=== PATIENT | female | born 1945 | race Caucasian/White ===

== ENCOUNTER 2018-03-09 15:04 | Observation (INO) ==
[2018-03-09] MEDS ORDERED: Sod Chloride 0.9% Inj 1,000 ML IV.SIG ONE (18:48)
--- NOTE | 2018-03-09 19:01 | ED ---
HPI General Chief complaint: Nausea/Vomiting/Diarrhea Stated complaint: Sent by dr Mai Seen by Provider: 03/09/18 18:33 Source: patient Mode of arrival: ambulatory Limitations: no limitations History of Present Illness HPI Narrative: 72-year-old female presents to the emergency department the request of her primary care physician for evaluation of a small bowel obstruction that was found on CT today. Patient states Friday she began feeling nauseous and had mid abdominal pain. A CT was ordered today for evaluation and her primary care physician received the results which stated small bowel obstruction. Says she has had a decreased intake throughout the weekend but was able to eat today without vomiting. She states she has had 4-5 episodes of watery, yellow diarrhea that has decreased in quantity throughout the day. She denies unusual odor. She denies recent antibiotic use, hospitalizations, sick contacts. Patient says currently, her pain is 5/10 and focused in the lower mid abdominal region. She describes it as "pain". Patient states she has a history of hyperlipidemia and hypothyroidism. Says she has not taken her medications today. Related Data Home Medications Medication Instructions Recorded Confirmed acetaminophen [Tylenol Arthritis 650 mg PO Q8H PRN 03/09/18 03/09/18 Pain] levothyroxine 25 mcg PO DAILY 03/09/18 03/09/18 simvastatin 20 mg PO QPM 03/09/18 03/09/18 Allergies Allergy/AdvReac Type Severity Reaction Status Date / Time No Known Allergies Allergy Uncoded 01/02/14 05:07 Review of Systems ROS: all other systems reviewed are negative PMFSH History History Provided By: Patient Medical History Medical History Colon polyps (Acute) GERD (gastroesophageal reflux disease) (Acute) H/O: hysterectomy (Acute) History of diverticulitis of colon (Acute) Hx of non anemic vitamin B12 deficiency (Acute) Hyperlipidemia (Acute) Hypothyroidism (Acute) Osteoarthritis (Acute) Vitamin D deficiency (Acute) Social History Social History Substance History: No History of Abuse Second Hand Smoke Exposure: No Smoking Status: Never smoker How Often Do You Have a Drink Containing Alcohol: 2 to 3 times a week Recent Travel in [facility] within the Last 8 Weeks: No Recent Out of Country Travel within the Last 8 Weeks: No Exam Narrative Exam Narrative: GENERAL: Well-developed well-nourished no apparent distress SKIN: Focused skin assessment warm/dry. HEAD: Atraumatic. Normocephalic. EYES: Pupils equal and round. No scleral icterus. No injection or drainage. ENT: No nasal bleeding or discharge. Mucous membranes pink and moist. NECK: Trachea midline. No JVD. No lymphadenopathy CARDIOVASCULAR: Regular rate and rhythm. No murmur appreciated. RESPIRATORY: No accessory muscle use. Clear to auscultation. Breath sounds equal bilaterally. GASTROINTESTINAL: Abdomen soft, lower mid abdominal region rigid with TTP. Negative psoas sign. No rebound Tenderness MUSCULOSKELETAL: No obvious deformities. No clubbing. No cyanosis. No edema. NEUROLOGICAL: Awake and alert. No obvious cranial nerve deficits. Motor grossly within normal limits. Normal speech. PSYCHIATRIC: Appropriate mood and affect; insight and judgment normal. Course Initial Documented Vital Signs Temperature 98.8 F 03/09/18 15:12 Pulse Rate 104 H 03/09/18 15:12 Respiratory Rate 18 03/09/18 15:12 Blood Pressure 146/66 H 03/09/18 15:12 Pulse Oximetry 96 03/09/18 15:12 Last Documented Vital Signs Temperature 97.6 F 03/10/18 04:00 Pulse Rate 66 03/10/18 04:00 Respiratory Rate 16 03/10/18 04:00 Blood Pressure 109/59 L 03/10/18 04:00 Pulse Oximetry 96 03/10/18 04:00 Medical Decision Making MUSTAPHA Attestation MUSTAPHA supervised visit: Yes Attestation: I, Dr. Dawson, have reviewed the advance practice practitioner's documentation and am in agreement, met with the patient face to face, made the diagnosis, and the medical decision making was done by me. The patient was initially evaluated by ebenezer Weiss PA. Please see their complete history and physical. *My assessment and Findings: The patient presents with a history of abdominal pain and reportedly being diagnosed with a small bowel obstruction as an outpatient earlier today. Patient reports that she began to have abdominal pain on Friday. She reports that she did have a normal bowel movement on Friday. She reports that she then went to a local urgent care center for further evaluation of the abdominal pain and a CT scan of the abdomen pelvis was ordered. She denies having any nausea or vomiting associated with this. She reports that she had a loose stool earlier today. She denies ever having a small bowel obstruction in the past. The patient reports that her primary care physician, Dr. Ley called her regarding the CT scan results being abnormal and told her to go to the emergency department. The patient reports that the only abdominal surgeries that she has had is a complete hysterectomy, and a 9 pound cyst removal. During the course of the patient's emergency department visit, the patient's history, examination, and differential diagnosis were reviewed with the patient. The patient was placed on a youth nutritional monitor with oximetry and frequent blood pressure monitoring. The patient had IV access obtained and blood work sent for analysis. The patient was initially provided normal saline 1 L IV fluid bolus. The patient's diagnostic studies were reviewed and remarkable for a CT scan of the abdomen and pelvis results that was reviewed regarding the outpatient reading that did show evidence of a possible partial small bowel obstruction. The patient's white count is 7.6, hemoglobin 13.9, platelets 263, Potassium 3.4 , GFR 73with eosinophils 4.3, PT 10.8, PTT 25, chemistry is remarkable for potassium 3.4, GFR 73. The patient will be admitted to the hospital for continued observation regarding a possible partial small bowel obstruction versus enteritis. The patient's results were discussed with the patient, including the plan of care. I explained that further testing and/ or monitoring is indicated based on the patient's history, examination, and/ or laboratory findings. Therefore, I recommended admission for additional evaluation. The patient expressed understanding and was agreeable with this plan. The patient was admitted to the hospital in stable condition and sent to a bed under the care of the [facility] hospitalist service. [facility] Narrative Medical decision making narrative: 72-year-old female presents to the emergency department for evaluation of a possible small bowel obstruction that was found on CT today. She was advised to come to the emergency department by her primary care physician who received the report. She states Friday she started having nausea associated with abdominal pain. Says she went to urgent care who ordered a CT this was performed today. Currently, she states her pain is 5/10 and focused in the lower mid abdominal region. Vital signs are stable. Physical exam findings consistent with a 72-year-old female, well-developed well -nourished in no acute distress, resting comfortably in bed. Mild TTP with rigidity to lower midabdominal region. A midline scar from a previous, remote hysterectomy noted. I reviewed the CT abdomen pelvis with and without contrast from [place] [facility] dated today. States "evidence of multiple loops of mildly dilated small bowel as well as some thickening of the wall of the several loops of the small bowel. There is a ventral abdominal hernia to the right of midline with 1 of the loops mildly dilated thickened small bowel extending through the hernia defect. Partial small bowel obstruction is questioned. There is also mild diffuse thickening of the wall of the proximal transverse colon and ascending colon to include the cecum. These findings are suggestive of colitis and enteritis." Her labs are stable. I spoke with Dr. Gomez who agreed to the admission. Medical Screen Exam Complete: Yes Emergency Medical Condition: Yes Differential Diagnosis Differential Diagnosis: Small bowel obstruction, diarrhea, C. difficile Lab Data Result diagrams: 03/09/18 19:16 03/09/18 19:16 Lab Results 03/09/18 03/09/18 03/09/18 Range/Units 19:16 19:16 19:27 WBC 7.6 (4.0-11.0) th/mm3 RBC 4.50 (4.00-5.30) mil/mm3 Hgb 13.9 (11.6-15.3) gm/dL Hct 40.8 (35.0-46.0) % MCV 90.7 (80.0-100.0) fL MCH 30.8 (27.0-34.0) pg MCHC 34.0 (32.0-36.0) % RDW 14.4 (11.6-17.2) % Plt Count 263 (150-450) th/mm3 MPV 7.8 (7.0-11.0) fL Neut % (Auto) 60.9 (16.0-70.0) % Lymph % (Auto) 28.4 (9.0-44.0) % [place] % (Auto) 6.0 (0.0-8.0) % Eos % (Auto) 4.3 H (0.0-4.0) % Baso % (Auto) 0.4 (0.0-2.0) % Neut # (Auto) 4.6 (1.8-7.7) th/mm3 Lymph # (Auto) 2.2 (1.0-4.8) th/mm3 [place] # (Auto) 0.5 (0.0-0.9) th/mm3 Eos # (Auto) 0.3 (0.0-0.4) th/mm3 Baso # (Auto) 0.0 (0.0-0.2) th/mm3 WBC Differential . Differential Comment Auto diff final PT 10.8 (9.8-11.6) sec INR 1.1 Ratio APTT 25.0 (24.3-30.1) sec Sodium 139 (136-145) meq/L Potassium 3.4 L (3.5-5.1) meq/L Chloride 104 (98-107) meq/L Carbon Dioxide 24.4 (21.0-32.0) meq/L Anion Gap 11 (5-15) meq/L BUN 16 (7-18) mg/dL Creatinine 0.77 (0.50-1.00) mg/dL Estimated GFR 73 L (>89) mL/min Random Glucose 95 (74-106) mg/dL Calcium 8.7 (8.5-10.1) mg/dL Magnesium 2.2 (1.5-2.5) mg/dL Total Bilirubin 0.5 (0.2-1.0) mg/dL AST 15 (15-37) U/L ALT 20 (10-53) U/L Alkaline Phosphatase 77 (45-117) U/L Total Protein 7.5 (6.4-8.2) g/dL Albumin 3.8 (3.4-5.0) g/dL Urine Color (Yellw/Straw) Urine Clarity (Clear) Urine pH (5.0-8.5) Ur Specific [place] (1.002-1.035) Urine Protein (Neg-Trace) mg/dL Urine Glucose (UA) (Negative) mg/dL Urine Ketones (Negative) mg/dL Urine Occult Blood (Negative) Urine Nitrate (Negative) Urine Bilirubin (Negative) Urine Urobilinogen (Less than 2) mg/dL Ur Leukocyte Esterase (Negative) Urine RBC (0-3) /hpf Urine WBC (0-5) /hpf Ur Squamous Epith Cells (0-5) /hpf Urine Mucus (Occasional) /lpf Micro UA Comment Ur Microscopic Review Urine Culture Comments 03/09/18 Range/Units 23:29 WBC (4.0-11.0) th/mm3 RBC (4.00-5.30) mil/mm3 Hgb (11.6-15.3) gm/dL Hct (35.0-46.0) % MCV (80.0-100.0) fL MCH (27.0-34.0) pg MCHC (32.0-36.0) % RDW (11.6-17.2) % Plt Count (150-450) th/mm3 MPV (7.0-11.0) fL Neut % (Auto) (16.0-70.0) % Lymph % (Auto) (9.0-44.0) % [place] % (Auto) (0.0-8.0) % Eos % (Auto) (0.0-4.0) % Baso % (Auto) (0.0-2.0) % Neut # (Auto) (1.8-7.7) th/mm3 Lymph # (Auto) (1.0-4.8) th/mm3 [place] # (Auto) (0.0-0.9) th/mm3 Eos # (Auto) (0.0-0.4) th/mm3 Baso # (Auto) (0.0-0.2) th/mm3 WBC Differential Differential Comment PT (9.8-11.6) sec INR Ratio APTT (24.3-30.1) sec Sodium (136-145) meq/L Potassium (3.5-5.1) meq/L Chloride (98-107) meq/L Carbon Dioxide (21.0-32.0) meq/L Anion Gap (5-15) meq/L BUN (7-18) mg/dL Creatinine (0.50-1.00) mg/dL Estimated GFR (>89) mL/min Random Glucose (74-106) mg/dL Calcium (8.5-10.1) mg/dL Magnesium (1.5-2.5) mg/dL Total Bilirubin (0.2-1.0) mg/dL AST (15-37) U/L ALT (10-53) U/L Alkaline Phosphatase (45-117) U/L Total Protein (6.4-8.2) g/dL Albumin (3.4-5.0) g/dL Urine Color Yellow (Yellw/Straw) Urine Clarity Hazy H (Clear) Urine pH 5.0 (5.0-8.5) Ur Specific [place] 1.017 (1.002-1.035) Urine Protein Negative (Neg-Trace) mg/dL Urine Glucose (UA) Negative (Negative) mg/dL Urine Ketones Trace H (Negative) mg/dL Urine Occult Blood Moderate H (Negative) Urine Nitrate Negative (Negative) Urine Bilirubin Negative (Negative) Urine Urobilinogen Less than 2 (Less than 2) mg/dL Ur Leukocyte Esterase Moderate H (Negative) Urine RBC 1 (0-3) /hpf Urine WBC 11 H (0-5) /hpf Ur Squamous Epith Cells <1 (0-5) /hpf Urine Mucus Few H (Occasional) /lpf Micro UA Comment Culture indicated Ur Microscopic Review Not Reportable Urine Culture Comments Culture indicated Discharge Plan Discharge Disposition Patient Disposition: 30 Still Patient Discharge Condition Condition: Stable Discharge Details Diagnosis: Partial obstruction of small intestine Physicians Team ED Provider: Zaira Dawson ED Midlevel Provider: Sharyn Rios Primary Care Provider: Scott Ley Attending Provider: Kevin Swann Status ED Status: Left Department Discharge Information Discharge Date/Time: 03/10/18 01:15
[2018-03-09 19:44] LABS: Baso % (Auto) 0.4 % (0.0-2.0); Eos # (Auto) 0.3 th/mm3 (0.0-0.4); Eos % (Auto) 4.3 % (0.0-4.0); Hematocrit 40.8 % (35.0-46.0); Hemoglobin 13.9 gm/dL (11.6-15.3); Lymph # (Auto) 2.2 th/mm3 (1.0-4.8); Lymph % (Auto) 28.4 % (9.0-44.0); Mean Corpuscular Hemoglobin 30.8 pg (27.0-34.0); Mean Corpuscular Volume 90.7 fL (80.0-100.0); Mean Platelet Volume 7.8 fL (7.0-11.0); Mono # (Auto) 0.5 th/mm3 (0.0-0.9); Neut # (Auto) 4.6 th/mm3 (1.8-7.7); Neut % (Auto) 60.9 % (16.0-70.0); Platelet Count 263 th/mm3 (150-450); Red Cell Distribution Width 14.4 % (11.6-17.2); White Blood Count 7.6 th/mm3 (4.0-11.0)
[2018-03-09 19:59] LABS: INR 1.1 Ratio; Prothrombin Time 10.8 sec (9.8-11.6)
[2018-03-09 20:04] LABS: Albumin 3.8 g/dL (3.4-5.0); Anion Gap 11 meq/L (5-15); Aspartate Aminotransferase 15 U/L (15-37); Blood Urea Nitrogen 16 mg/dL (7-18); Calcium 8.7 mg/dL (8.5-10.1); Carbon Dioxide 24.4 meq/L (21.0-32.0); Chloride 104 meq/L (98-107); Glomerular Filtration Rate 73 mL/min (>89); Glucose,Random 95 mg/dL (74-106); Magnesium 2.2 mg/dL (1.5-2.5); Potassium 3.4 meq/L (3.5-5.1); Sodium 139 meq/L (136-145)
[2018-03-09 20:05] LABS: Alanine Aminotransferase 20 U/L (10-53)
[2018-03-09 20:07] LABS: Alkaline Phosphatase 77 U/L (45-117); Total Protein 7.5 g/dL (6.4-8.2)
[2018-03-10 00:05] LABS: Bilirubin,Urine Negative (Negative); Clarity,Urine Hazy (Clear); Color,Urine Yellow (Yellw/Straw); Glucose,Urine (UA) Negative (Negative); Leukocyte Esterase,Urine Moderate (Negative); Mucus,Urine Few /lpf (Occasional); Nitrite,Urine Negative (Negative); Specific Gravity,Urine 1.017 (1.002-1.035); Squamous Epithelial Cell,Urine <1 /hpf (0-5)
[2018-03-10] MEDS ORDERED: Acetaminophen 325 MG Tablet PO PRN ×2 (00:33→00:39)
[2018-03-10] MEDS ORDERED: Bisacodyl 10 MG Supp RECTAL PRN (00:39)
[2018-03-10] MEDS ORDERED: oxyCODONE/Acetaminophen 10/325 Tablet PO PRN (00:42)
[2018-03-10] MEDS ORDERED: Naloxone Inj 0.4 MG/ML Vial IV.PUSH PRN (00:42)
[2018-03-10] MEDS: Sod Chloride 0.9% Inj 1,000 ML IV.CONT SCH ×2 (00:59→12:36)
--- NOTE | 2018-03-10 00:59 | P.HPFP ---
History of Present Illness Primary Care Physician: Scott Ley History of Present Illness: This is a pleasant 72-year-old female who presents for evaluation of abnormal CT abdomen and pelvis. 3 days ago the patient developed diffuse abdominal pain which was intermittent, without nausea or vomiting. She continued to have bowel movements throughout which were somewhat loose. She presented to the urgent care where she was prescribed Flagyl and Cipro p.o. and an abdominal CT scan was ordered which showed a questionable partial small bowel obstruction, mild diffuse thickening of the wall of the proximal transverse colon in the ascending colon involving the cecum suggestive of colitis and enteritis. The patient states she is feeling much better than 3 days ago. She denied any fevers. She did have cold sweats. The patient states her main symptom today is hunger. She does have a very remote history of diverticulitis but states it has not bothered her for years. PMF - History History Provided By: Patient, Medical Record - Medical History Medical History: Medical History (Last Updated 03/10/18 @ 00:57 by Codi Gomez MD) Colon polyps GERD (gastroesophageal reflux disease) H/O: hysterectomy History of diverticulitis of colon Hx of non anemic vitamin B12 deficiency Hyperlipidemia Hypothyroidism Osteoarthritis Vitamin D deficiency - Tobacco History Second Hand Smoke Exposure: No Smoking Status: Never smoker - Alcohol History How Often Do You Have a Drink Containing Alcohol: 2 to 4 times a month - Substance Use History Substance History: No History of Abuse - Travel History Recent Travel in the [place] Within the Last 8 Weeks: No Recent Travel Out of the Country Within the Last 8 Weeks: No - Immunization History Tetanus Immunization: Unsure Medications and Allergies Active Medications: Active Medications Acetaminophen (Tylenol) 650 mg PO Q8H PRN PRN Reason: PAIN 1-10 Acetaminophen (Tylenol) 650 mg PO Q4H PRN PRN Reason: Temp > 100.4 Al Hydroxide/Mg Hydroxide (Milk Of Magnesia Liq) 30 ml PO Q12H PRN PRN Reason: Mild Constipation Aspirin (Ecotrin) 81 mg PO DAILY OLU Bisacodyl (Dulcolax Supp) 10 mg RECTAL DAILY PRN PRN Reason: SEVERE CONSITIPATION Ciprofloxacin/Dextrose (Cipro 200 Mg/100 Ml Inj) 200 mg in 100 mls @ 100 mls/ hr IV.SIG Q24H OLU Metronidazole/Sodium Chloride (Flagyl 500 Mg Inj) 100 mls @ 100 mls/hr IV.SIG Q8H OLU Sodium Chloride (Ns Inj) 1,000 mls @ 100 mls/hr IV.CONT .Q10H OLU Lactulose (Lactulose Liq) 30 ml PO DAILY PRN PRN Reason: SEVERE CONSITIPATION Levothyroxine Sodium (Synthroid) 25 mcg PO DAILY@0700 [facility] Naloxone HCl (Narcan Inj) 0.4 mg IV.PUSH UNSCH PRN PRN Reason: SEE LABEL COMMENTS Ondansetron HCl (Zofran Inj) 4 mg IV.PUSH Q6H PRN PRN Reason: NAUSEA OR VOMITING Oxycodone/Acetaminophen (Percocet 10/325 Mg) 1 tab PO Q6H PRN PRN Reason: PAIN SCALE 6 TO 10 Oxycodone/Acetaminophen (Percocet 5/325 Mg) 1 tab PO Q6H PRN PRN Reason: PAIN SCALE 3 TO 5 Pravastatin Sodium (Pravachol) 40 mg PO QPM [facility] Senna/Docusate Sodium (Kelly-Colace) 1 tab PO BID [facility] Sennosides (Senokot) 17.2 mg PO Q12H PRN PRN Reason: Moderate Constipation Sodium Chloride (Ns Flush) 2 ml IV.FLUSH PRN PRN PRN Reason: FLUSH AFTER USING IV ACCESS Allergies Allergy/AdvReac Type Severity Reaction Status Date / Time No Known Allergies Allergy Uncoded 01/02/14 05:07 Home Medications Medication Instructions Recorded Confirmed Type acetaminophen [Tylenol Arthritis 650 mg PO Q8H PRN 03/09/18 03/09/18 History Pain] levothyroxine 25 mcg PO DAILY 03/09/18 03/09/18 History simvastatin 20 mg PO QPM 03/09/18 03/09/18 History Exam Vital signs: Vital Signs 03/09/18 15:12 03/09/18 19:03 03/09/18 23:00 Temperature 98.8 F Pulse Rate 104 H 72 79 Respiratory Rate 18 18 18 Blood Pressure 146/66 H 130/69 140/67 Pulse Oximetry 96 97 97 Intake & Output 03/09/18 03/09/18 03/10/18 06:59 18:59 06:59 Intake Total 1240 / 1240 Balance 1240 / 1240 Weight 63.957 kg Intake: IV 1000 / 1000 NS Inj 1,000 ML @ Wide Open IV. 1000 / 1000 SIG BOLUS ONE Rx#:[id number] Oral 240 / 240 Other: # Voids 1 Date of Last Bowel Movement 03/09/18 Results - Labs Result diagrams: 03/09/18 19:16 03/09/18 19:16 Abnormal lab results 03/09/18 03/09/18 03/09/18 Range/Units 19:16 19:16 23:29 Eos % (Auto) 4.3 H (0.0-4.0) % Potassium 3.4 L (3.5-5.1) meq/L Estimated GFR 73 L (>89) mL/min Urine Clarity Hazy H (Clear) Urine Ketones Trace H (Negative) mg/dL Urine Occult Blood Moderate H (Negative) Ur Leukocyte Esterase Moderate H (Negative) Urine WBC 11 H (0-5) /hpf Urine Mucus Few H (Occasional) /lpf Short CBC 03/09/18 Range/Units 19:16 WBC 7.6 (4.0-11.0) th/mm3 Hgb 13.9 (11.6-15.3) gm/dL Hct 40.8 (35.0-46.0) % Plt Count 263 (150-450) th/mm3 BMP 03/09/18 19:16 Sodium 139 Potassium 3.4 L Chloride 104 Carbon Dioxide 24.4 BUN 16 Creatinine 0.77 Calcium 8.7 Liver Function 03/09/18 Range/Units 19:16 Total Bilirubin 0.5 (0.2-1.0) mg/dL AST 15 (15-37) U/L ALT 20 (10-53) U/L Alkaline Phosphatase 77 (45-117) U/L Albumin 3.8 (3.4-5.0) g/dL Urine 03/09/18 Range/Units 23:29 Urine Color Yellow (Yellw/Straw) Urine Clarity Hazy H (Clear) Urine pH 5.0 (5.0-8.5) Ur Specific [place] 1.017 (1.002-1.035) Urine Protein Negative (Neg-Trace) mg/dL Urine Glucose (UA) Negative (Negative) mg/dL Caprini VTE Risk Assessment Caprini VTE Risk Assessment: No/Low Risk (score <= 1) Caprini Risk Assessment Model: Point Value = 1 Point Value = 2 Point Value = 3 Point Value = 5 Age 41-60 Minor surgery BMI > 25 kg/m2 Swollen legs Varicose veins or History of unexplained or recurrent spontaneous Oral contraceptives or hormone replacement Sepsis (< 1 month) Serious lung disease, including pneumonia (< 1 month) Abnormal pulmonary function Acute myocardial infarction Congestive heart failure (< 1 month) History of inflammatory bowel disease Medical patient at bed rest Age 61-74 Arthroscopic surgery Major open surgery (> 45 min) Laparoscopic surgery (> 45 min) Malignancy Confined to bed (> 72 hours) Immobilizing plaster cast Central venous access Age >= 75 History of VTE Family history of VTE Factor V Leiden Prothrombin [id number] Lupus anticoagulant Anticardiolipin antibodies Elevated serum homocysteine Heparin-induced thrombocytopenia Other congenital or acquired thrombophilia Stroke (< 1 month) Elective arthroplasty Hip, pelvis, or leg fracture Acute spinal cord injury (< 1 month) Prophylaxis Regimen: Total Risk Factor Score Risk Level Prophylaxis Regimen 0-1 Low Early ambulation 2 Moderate Order ONE of the following: *Sequential Compression Device (SCD) *Heparin 5000 units SQ BID 3-4 Higher Order ONE of the following medications: *Heparin 5000 units SQ TID *Enoxaparin/Lovenox 40 mg SQ daily (WT < 150 kg, CrCl > 30 mL/min) *Enoxaparin/Lovenox 30 mg SQ daily (WT < 150 kg, CrCl > 10-29 mL/min) *Enoxaparin/Lovenox 30 mg SQ BID (WT < 150 kg, CrCl > 30 mL/min) AND/OR *Sequential Compression Device (SCD) 5 or more Highest Order ONE of the following medications: *Heparin 5000 units SQ TID (Preferred with Epidurals) *Enoxaparin/Lovenox 40 mg SQ daily (WT < 150 kg, CrCl > 30 mL/min) *Enoxaparin/Lovenox 30 mg SQ daily (WT < 150 kg, CrCl > 10-29 mL/min) *Enoxaparin/Lovenox 30 mg SQ BID (WT < 150 kg, CrCl > 30 mL/min) AND *Sequential Compression Device (SCD) Assessment and Plan - Assessment and Plan Abdominal pain, most likely due to colitis and enterocolitis. There is a very questionable partial small bowel obstruction however she has continued to have bowel movements including today. She complains of hunger. I will place her on a full liquid diet and see how she tolerates that. If she vomits then we may need to get GI versus general surgery involved. We will continue on Flagyl and Cipro IV. We will continue her on the rest of her medications as appropriate. DVT prophylaxis with SCDs.
[2018-03-10] MEDS ORDERED: Ciprofloxacin 200 MG/100 ML 200 MG/100 ML PIGGYBACK IV.SIG SCH (01:00)
--- NOTE | 2018-03-10 08:55 | P.PNIM ---
Subjective Interval history: Pt had a small amount of loose stool this morning Her abd discomfort is stable to improved. She has not had any oral intake other than water since admission. She is planned for liquid diet this morning. Afebrile Physical Exam Vital signs: Vital Signs 03/09/18 15:12 03/09/18 19:03 03/09/18 23:00 Temperature 98.8 F Pulse Rate 104 H 72 79 Respiratory Rate 18 18 18 Blood Pressure 146/66 H 130/69 140/67 Pulse Oximetry 96 97 97 03/10/18 01:12 03/10/18 04:00 03/10/18 08:00 Temperature 97.6 F 98.9 F Pulse Rate 66 69 Respiratory Rate 18 16 18 Blood Pressure 109/59 L 125/67 Pulse Oximetry 98 96 97 Intake & Output 03/09/18 03/10/18 03/10/18 18:59 06:59 18:59 Intake Total 1580 / 1580 Balance 1580 / 1580 Weight 63.957 kg 63.957 kg Intake: IV 1200 / 1200 Cipro 200 MG/100 ML Inj 200 mg 100 / 100 In 100 ml @ 100 mls/hr IV.SIG Q24H OLU Rx#:[id number] NS Inj 1,000 ML @ Wide Open IV. 1000 / 1000 SIG BOLUS ONE Rx#:[id number] Flagyl 500 MG Inj 100 ML @ 100 100 / 100 mls/hr IV.SIG Q8H OLU Rx#: [id number] Oral 380 / 380 Other: # Voids 1 Date of Last Bowel Movement 03/09/18 Weight On Admission 63.957 kg Narrative: General: NAD, AAOx3 Chest: CTA Cardiac: Regular Abd: +BS, soft mildly distended, mid abdominal tenderness to palpation, no guarding or rebound Ext: No edema Results - Labs CBC & Chem 7: 03/09/18 19:16 03/09/18 19:16 Laboratory Results - last 24 hr 03/09/18 03/09/18 03/09/18 19:16 19:16 19:27 WBC 7.6 RBC 4.50 Hgb 13.9 Hct 40.8 MCV 90.7 MCH 30.8 MCHC 34.0 RDW 14.4 Plt Count 263 MPV 7.8 Neut % (Auto) 60.9 Lymph % (Auto) 28.4 [place] % (Auto) 6.0 Eos % (Auto) 4.3 H Baso % (Auto) 0.4 Neut # (Auto) 4.6 Lymph # (Auto) 2.2 [place] # (Auto) 0.5 Eos # (Auto) 0.3 Baso # (Auto) 0.0 WBC Differential . Differential Comment Auto diff final PT 10.8 INR 1.1 APTT 25.0 Sodium 139 Potassium 3.4 L Chloride 104 Carbon Dioxide 24.4 Anion Gap 11 BUN 16 Creatinine 0.77 Estimated GFR 73 L Random Glucose 95 Calcium 8.7 Magnesium 2.2 Total Bilirubin 0.5 AST 15 ALT 20 Alkaline Phosphatase 77 Total Protein 7.5 Albumin 3.8 Urine Color Urine Clarity Urine pH Ur Specific [place] Urine Protein Urine Glucose (UA) Urine Ketones Urine Occult Blood Urine Nitrate Urine Bilirubin Urine Urobilinogen Ur Leukocyte Esterase Urine RBC Urine WBC Ur Squamous Epith Cells Urine Mucus Micro UA Comment Ur Microscopic Review Urine Culture Comments 03/09/18 23:29 WBC RBC Hgb Hct MCV MCH MCHC RDW Plt Count MPV Neut % (Auto) Lymph % (Auto) [place] % (Auto) Eos % (Auto) Baso % (Auto) Neut # (Auto) Lymph # (Auto) [place] # (Auto) Eos # (Auto) Baso # (Auto) WBC Differential Differential Comment PT INR APTT Sodium Potassium Chloride Carbon Dioxide Anion Gap BUN Creatinine Estimated GFR Random Glucose Calcium Magnesium Total Bilirubin AST ALT Alkaline Phosphatase Total Protein Albumin Urine Color Yellow Urine Clarity Hazy H Urine pH 5.0 Ur Specific [place] 1.017 Urine Protein Negative Urine Glucose (UA) Negative Urine Ketones Trace H Urine Occult Blood Moderate H Urine Nitrate Negative Urine Bilirubin Negative Urine Urobilinogen Less than 2 Ur Leukocyte Esterase Moderate H Urine RBC 1 Urine WBC 11 H Ur Squamous Epith Cells <1 Urine Mucus Few H Micro UA Comment Culture indicated Ur Microscopic Review Not Reportable Urine Culture Comments Culture indicated - Imaging CT Abd/pelvis W&W/O IV contrast (03/09/18) 1. Evidence of multiple loops of mildly dilated small bowel as well as some thickening of the wall of several loops of small bowel. There is a ventral abdominal wall hernia to the right of midline with one of the loops of mildly thickened small bowel extending through the hernia defect. Partial small bowel obstruction is questioned. There is also mild diffuse thickening of the wall of the proximal transverse colon and the ascending colon including the cecum. The findings are suggestive of colitis and enteritis. 2. Scattered diverticula are noted throughout the colon 3. Degenerative changes and scoliosis of the thoracolumbar spine 4. Degenerative changes involving the hip joints bilaterally. Assessment and Plan - Assessment (1) Partial obstruction of small intestine Code(s): K56.600 - Partial intestinal obstruction, unspecified as to cause Status: Acute Plan: Partial SBO on CT scan Colitis/Enteritis Hx of tubular adenoma with high grade dysplasia in 2016 - Pt is a 72 y/o female with hypothyroidism, hyperlipidemia, and hx of precancerous colon polyps (Pts last colonoscopy was on 09/02/[address] Mcmillan which revealed a pedunculated polyp in the mid transverse colon). She presented to the ED at [facility] on 03/09/18 for further evaluation of abnormal findings on CT abdomen and pelvis indicating possible partial SBO. Pt had reported that 3 days prior to admission she developed diffuse abdominal pain and some loose stools. She was seen at [facility] urgent care and prescribed Flagyl and Cipro p.o. and was sent for CT abd/pelvis. This was performed on 03/09/18 and revealed evidence of multiple loops of mildly dilated small bowel as well as some thickening of the wall of several loops of small bowel, a ventral abdominal wall hernia to the right of midline with one of the loops of mildly thickened small bowel extending through the hernia defect. Partial small bowel obstruction is questioned. There is also mild diffuse thickening of the wall of the proximal transverse colon and the ascending colon including the cecum. The findings are suggestive of colitis and enteritis. - She denies any recent travel or ill contacts. - Overall the pt is feeling better - She was started on Cipro and Flagyl IV at admission - Pt is on IVF - Check stool studies if she has any further loose stools. - She will have a trial of full liquids today. If she tolerates liquids for breakfast we can advance to soft foods for lunch and if she does well with this plan to discharge home this afternoon to complete her Abx regimen at home. - She will need to followup with her PCP, Dr. Scott Ley, within 3-5 days. (2) Colitis Code(s): K52.9 - Noninfective gastroenteritis and colitis, unspecified Status : Acute - Attending Attestation The exam, history, and the medical decision-making described in the above note were completed with the assistance of the mid-level provider. I reviewed and agree with the findings presented. I attest that I had a [id number] encounter with the patient on the same day, and personally performed and documented my assessment and findings in the medical record. Patient examined. Assessment and plan formulated with Talita Johnson PA-C. I agree with the above.
[2018-03-10] MEDS ORDERED: Senna/Docusate Sodium 8.6/50 MG Tablet PO SCH (09:00)
== END 2018-03-10 14:54 | disposition home or self-care (01) ==
LOC: NEDA 15:04 → NEPC 15:04 → NEDA 03-10 01:15 → NEPGCP 03-10 01:16
PROVIDERS: ADMIT Hospitalist; ATTEND Hospitalist